=== PATIENT | female | born 1950 | race Caucasian/White ===

== ENCOUNTER 2017-10-26 16:12 | Emergency (ER) | payer OTHER ==
[2017-10-26] MEDS ORDERED: fentaNYL 100 MCG/2 ML INJ ONE ×2 (17:01)
--- NOTE | 2017-10-26 17:15 | EDPHY ---
H & P Stated Complaint: L shoulder pain-s/p [place] ski fall- shoulder to snow-no other inj Time Seen by Provider: 10/26/17 16:47 HPI/ROS: CHIEF COMPLAINT: Left shoulder injury HISTORY OF PRESENT ILLNESS: The patient presents to the ED with complaints of left shoulder pain. She was cross-country skiing earlier today when she fell onto an outstretched hand. Since that time she has been unable to move her shoulder. The patient denies any acute numbness or weakness. She does report moderate to severe pain with any attempted movement. The patient denies any complaints of headache, neck pain, chest pain or additional acute complaints. REVIEW OF SYSTEMS: A comprehensive 10 point review of systems is otherwise negative aside from elements mentioned in the history of present illness. Source: Patient Exam Limitations: No limitations - Personal History Current Tetanus/Diphtheria Vaccine: Unsure Current Tetanus Diphtheria and Acellular Pertussis (TDAP): Unsure - Medical/Surgical History Hx Asthma: No Hx Chronic Respiratory Disease: No Hx Diabetes: No Hx Cardiac Disease: No Hx Renal Disease: No Hx Cirrhosis: No Hx Alcoholism: No Hx HIV/AIDS: No Hx Splenectomy or Spleen Trauma: No Other PMH: pneumo x 3 - Social History Smoking Status: Never smoked - Physical Exam Exam: General Appearance: Alert, no distress Head: Atraumatic Eyes: Pupils equal, round, reactive ENT, Mouth: No hemotympanum, no oral trauma Neck: Nontender, trachea midline Respiratory: No chest wall tender, subcutaneous air, lungs clear bilaterally Cardiovascular: Regular rate and rhythm Abdomen: Abdomen is soft and nontender, pelvis stable Skin: No lacerations, No abrasion Back: No midline T/L/S pain Extremities: Left shoulder pain and deformity consistent with dislocation Neurological: A&Ox3, normal motor function, normal sensory exam Constitutional: Initial Vital Signs Temperature (C) 37.0 C 10/26/17 16:16 Heart Rate 88 10/26/17 16:16 Respiratory Rate 18 10/26/17 16:16 Blood Pressure 154/100 H 10/26/17 16:16 O2 Sat (%) 97 10/26/17 16:16 O2 Delivery Mode Room Air Allergies/Adverse Reactions: No Known Allergies Allergy (Verified 01/21/15 12:16) Home Medications: Medication Instructions Recorded Hydrocodone/APAP 5/325 [Union 1 - 2 each PO Q6 PRN #20 tab 10/26/17 5/325] Medical Decision Making - Diagnostics Imaging Results: Left shoulder x-ray: Images reviewed by myself, dislocation of the left glenohumeral joint. Post reduction left shoulder x-ray: Images reviewed by myself, reduction of the left glenohumeral dislocation Procedures: Procedure: Dislocation reduction. Indication: Dislocation The shoulder was reduced in the usual fashion without complications. Post reduction the patient's neurovascular exam is normal. Post reduction x-ray demonstrates reduction of the joint to the anatomic position. The procedure was performed by myself. ED Course/Re-evaluation: The patient presents to the ED with a left shoulder dislocation. She was neurologically intact. The patient had an IV established. She received 100 mcg of fentanyl. I reduced her shoulder without complication. She tolerated the procedure well. The patient has been placed in a sling. She is given the contact number of our on-call orthopedic surgeon to follow up with for a recheck. Differential Diagnosis: Differential diagnosis considered includes fracture, sprain, dislocation Departure - Departure Disposition: Home, Routine, Self-Care Clinical Impression: Shoulder dislocation Qualifiers: Encounter type: initial encounter Laterality: left Qualified Code(s): S43.005A - Unspecified dislocation of left shoulder joint, initial encounter Condition: Good Instructions: Shoulder Dislocation (ED) Additional Instructions: 1. Take Ibuprofen or Motrin 600 mg by mouth three times a day. 2. Ice as directed 3. Union as needed for severe pain 4. Splint as needed for comfort 5. Follow up with our on-call orthopedic surgeon or regular orthopedic surgeon for any persistent pain, instability or other concerns. Referrals: Raeann Gilmore MD [Primary Care Provider] - As per Instructions Fredis Reddy MD [Medical Doctor] - As per Instructions
[2017-10-26] MEDS ORDERED: fentaNYL 100 MCG/2 ML INJ IVP ONE (17:18)
[2017-10-26 18:12] VITALS: BP 128/80; PULSE 80; RESP 16; TEMP 98.6; O2SAT 94
== END 2017-10-26 18:10 | disposition home or self-care (01) ==
PROC: 0RSKXZZ Reposition Left Shoulder Joint, External Approach (ICD-10-PCS; principal; 2017-10-26)
DX: S43.005A Unspecified dislocation of left shoulder joint, initial encounter (principal); V00.321A Fall from snow-skis, initial encounter; Y99.8 Other external cause status; Y93.23 Activity, snow (alpine) (downhill) skiing, snowboarding, sledding, tobogganing and snow tubing
CPT/HCPCS: 23650; 73030; 96374; 99284; J3010